=== PATIENT | male | born 2005 | race Caucasian/White ===

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

== ENCOUNTER 2023-11-24 12:41 | Emergency (ER) | payer OTHER ==
[~2023-11-24] VITALS: Ht 182.8 cm; Wt 68.0 kg
[2023-11-24] MEDS ORDERED: Ondansetron Hydrochloride 4 MG/2 ML VIAL IV ONE (13:00)
[2023-11-24] MEDS ORDERED: SODIUM CHLORIDE 0.9% 1,000 ML IV ONE (13:00)
[2023-11-24] MEDS ORDERED: Ketorolac Tromethamine 30 MG/ML VIAL IV ONE (13:00)
[2023-11-24 13:25] LABS: BASO % 0.3 % (0.0-1.0); EOS # 0.1 10*3/uL (0.0-0.4); EOS % 0.8 % (1.0-4.0); HEMATOCRIT 43.6 % (42.0-52.0); LYMPH # 1.3 10*3/uL (1.3-4.4); LYMPH % 13.6 % (27.0-41.0); MEAN CORPUSCULAR HGB 28.3 pg (27.0-31.0); MEAN CORPUSCULAR HGB CONC 32.6 g/dl (33.0-37.0); MEAN PLATELET VOLUME 10.7 fl (9.6-12.3); MONO # 0.5 10*3/uL (0.1-1.0); MONO % 4.8 % (3.0-9.0); NEUT # 7.8 10*3/uL (2.3-7.9); NEUT % 80.2 % (47.0-73.0); PLATELET COUNT AUTOMATED 232 10*3/uL (130-400); RED BLOOD COUNT 5.01 10*6/uL (4.50-5.90); RED CELL DISTRI WIDTH 12.5 % (0-14.5); WHITE BLOOD COUNT 9.7 10*3/uL (4.8-10.8)
[2023-11-24 13:45] LABS: ALKALINE PHOSPHATASE 122 U/L (46-116); BUN 10 mg/dl (9-23); CHLORIDE 107 mmol/L (98-107); LIPASE 29 U/L (12-53); SGPT/ALT 17 U/L (5-49); TOTAL PROTEIN 6.8 gm/dL (6.0-8.0)
[2023-11-24 14:42] LABS: BILIRUBIN Negative (Negative); BLOOD 2+ (Negative); CLARITY Turbid (Clear); COLOR Yellow (Yellow); GLUCOSE Negative (Negative); KETONE Trace (Negative); LEUKO ESTERASE 1+ (Negative); NITRITE Negative (Negative); PH 7.5 (4.5-8.0); SPECIFIC GRAVITY 1.025 (1.001-1.030)
[2023-11-24 14:53] LABS: RBC 16-20 rbc/hpf (0-2); URINE AMPHETAMINES Negative (1000ng/ml); URINE BARBITURATES Negative (200ng/ml); URINE BENZODIAZEPINES Negative (200ng/ml); URINE CANNABINOIDS (THC) Positive (50ng/ml); URINE COCAINE Negative (300ng/ml); URINE METHADONE Negative (300ng/ml); URINE OPIATES Negative (300ng/ml); URINE PHENCYCLIDINE Negative (25ng/ml)
[2023-11-24] MEDS ORDERED: KETOROLAC10 MG PO (15:10)
== END 2023-11-24 15:09 | disposition home or self-care (01) ==
LOC: ED 12:41
PROVIDERS: Physician Assistant Medical
DX: N13.2 Hydronephrosis with renal and ureteral calculous obstruction (principal); R11.10 Vomiting, unspecified; Z91.030 Bee allergy status; Z79.899 Other long term (current) drug therapy

== ENCOUNTER 2024-05-13 09:41 | Emergency (ER) | payer OTHER ==
[~2024-05-13] VITALS: Wt 69.4 kg
[~2024-05-13 09:41] MED LIST changes: +KETOROLAC10 MG PO
[2024-05-13] MEDS ORDERED: Doxycycline Hyclate 100 MG CAP PO ONE (10:05)
[2024-05-13] MEDS ORDERED: cefTRIAXone Sodium 500 MG VIAL IM ONE (10:05)
[2024-05-13] MEDS ORDERED: VIBRAMYCIN100 MG PO (10:06)
== END 2024-05-13 10:32 | disposition home or self-care (01) ==
LOC: ED 09:41
DX: Z20.2 Contact with and (suspected) exposure to infections with a predominantly sexual mode of transmission (principal); Z91.030 Bee allergy status

== ENCOUNTER 2024-09-17 18:18 | Emergency (ER) | payer OTHER ==
[~2024-09-17] VITALS: Wt 65.8 kg
[~2024-09-17 18:18] MED LIST changes: +VIBRAMYCIN100 MG PO
[2024-09-17] MEDS ORDERED: ANTIBIOTIC28.4 GM T (18:35)
[2024-09-17] MEDS ORDERED: MELOXICAM15 MG PO (18:35)
[2024-09-17] MEDS ORDERED: Bacitracin Zinc/Neomycin/Pol 0.9 GM PACKET T ONE (18:35)
[2024-09-17] MEDS ORDERED: Acetaminophen/Oxycodone 5 MG/325 MG TABLET PO ONE (18:35)
[2024-09-17] MEDS ORDERED: XEROFORM PETRO1 EAC2 TD (18:35)
== END 2024-09-17 18:44 | disposition home or self-care (01) ==
LOC: ED 18:18
DX: T23.202A Burn of second degree of left hand, unspecified site, initial encounter (principal); Z91.030 Bee allergy status; Z79.2 Long term (current) use of antibiotics; X17.XXXA Contact with hot engines, machinery and tools, initial encounter; Y93.89 Activity, other specified; Y92.89 Other specified places as the place of occurrence of the external cause; Y99.8 Other external cause status